=== PATIENT | female | born 1935 | race Caucasian/White ===

== ENCOUNTER 2018-12-04 12:28 | Observation (INO) | payer MEDICARE ==
[~2018-12-04] VITALS: Ht 167.6 cm; Wt 68.5 kg
[2018-12-04] MEDS ORDERED: LOSA100T57 PO (12:43)
[2018-12-04] MEDS ORDERED: LOVA20TA2 PO (12:43)
[2018-12-04] MEDS ORDERED: FURO20TA4 PO (12:43)
[2018-12-04] MEDS ORDERED: METO50TA15 PO (12:43)
[2018-12-04] MEDS ORDERED: GLIM4TAB PO (12:43)
[2018-12-04] MEDS ORDERED: LEVO50TA6 PO (12:43)
[2018-12-04] MEDS ORDERED: LOSARTAN (12:43)
[2018-12-04] MEDS ORDERED: METF-399 PO (12:43)
[2018-12-04] MEDS ORDERED: AMOX500C2 (12:43)
[2018-12-04] MEDS ORDERED: NS IV 1000 ML 1,000 ML IV SCH (12:53)
[2018-12-04] MEDS ORDERED: hydrALAZINE (APESOLINE) 20 MG/ML VIAL IV ONE (13:00)
[2018-12-04] MEDS ORDERED: ONDANSETRON 4 MG/2 ML (SDV) Z0FRAN IVP ONE (13:00)
[2018-12-04] MEDS ORDERED: ACETAMINOPHEN 325 MG TABLET PO ONE (13:00)
[2018-12-04 13:12] LABS: HEMOGLOBIN 13.8 G/DL (11.5-16.0); MEAN CORPUSCULAR HEMOGLOBIN 31 PG (25-34); WHITE BLOOD COUNT 8.4 10^3/uL (4.3-11.0)
[2018-12-04 13:13] LABS: BASOPHILS % (AUTO) 0 % (0-10); EOSINOPHILS # (AUTO) 0.1 10^3/uL (0.0-0.3); EOSINOPHILS % (AUTO) 1 % (0-10); HEMATOCRIT 43 % (35-52); LYMPHOCYTES # (AUTO) 1.8 X 10^3 (1.0-4.0); LYMPHOCYTES % (AUTO) 22 % (12-44); MEAN CORPUSCULAR HGB CONC 33 G/DL (32-36); MEAN CORPUSCULAR VOLUME 96 FL (80-99); MEAN PLATELET VOLUME 10.9 FL (7.4-10.4); MONOCYTES # (AUTO) 0.8 X 10^3 (0.0-1.0); MONOCYTES % (AUTO) 9 % (0-12); NEUTROPHILS # (AUTO) 5.6 X 10^3 (1.8-7.8); NEUTROPHILS % (AUTO) 68 % (42-75); PLATELET COUNT 203 10^3/uL (130-400); RED CELL DISTRIBUTION WIDTH 12.8 % (10.0-14.5)
--- NOTE | 2018-12-04 13:14 | ED Cardiac General ---
History of Present Illness General Chief Complaint: Cardiac/General Problems Stated Complaint: HIGH BP,DIZZINESS,NAUSEA Nursing Triage Note: Woke up this morning feeling dizzy, had a headache, and more off balance than normal. Was also nauseous and had two loose stools. Took BP at home and was 200 systolic. Also states eyes aren't focusing very well right now. History of Present Illness Date Seen by Provider: Dec 04, 2018 Time Seen by Provider: 12:45 Initial Comments The patient is an 83-year-old female with a history of hypertension on metoprolol and losartan as well as hyperlipidemia and diabetes on metformin and glimepiride. She presents with concern for not feeling well with onset upon awakening from sleep this morning. She states that earlier this morning she had 2 episodes of watery nonbloody diarrhea. She notes some associated mild nausea and lightheadedness and a gradual onset bilateral frontal headache, along with a sensation of very mildly blurry vision bilaterally. Contrary to the triage note, patient states she has some unsteadiness with ambulation and is reliant upon a cane at baseline and this is not meaningfully worse than usual today. In the setting of her other symptoms, the patient took her blood pressure and was concerned to find it elevated despite compliance with her blood pressure medication earlier this morning. She shows me a few readings above 200 systolic although she is in the 180s systolic upon initial evaluation here in the emergency department. The patient is alert and oriented 4 and in no acute distress and pleasantly and appropriately interactive and specifically denies fevers, vomiting, hematemesis, hematochezia, melena, focal weakness, numbness, tingling, neck stiffness, shortness of breath or chest pain, abdominal pain, flank pain, back pain, dysuria or hematuria, recent unusual travel, unusual foods, sick contacts with similar symptoms, recent antibiotic use. Allergies and Home Medications Allergies Coded Allergies: atorvastatin (Verified Allergy, Unknown, weak muscles, 12/04/18) Patient Home Medication List Home Medication List Reviewed: Yes Review of Systems Review of Systems Constitutional: see HPI All Other Systems Reviewed Negative Unless Noted: Yes (Negative excepted noted.) Past Uwxqkwf-Lgccgu-Laahez Hx Past Med/Social Hx: Reviewed Nursing Past Med/Soc Hx Patient Social History Recent Foreign Travel: No Contact w/Someone Who Travel: No Recent Infectious Disease Expo: No Family Medical History Reviewed Nursing Family Hx Physical Exam Vital Signs Vital Signs - First Documented 12/04/18 12:36 Temp 96.8 Pulse 62 Resp 18 B/P (MAP) 198/66 (110) Pulse Ox 99 Capillary Refill : Less Than 3 Seconds Height, Weight, BMI Height: 5'7.00" Weight: 150lbs. oz. 68.075165uq; BMI Method:Stated General Appearance: No Apparent Distress Other comments This is an elderly female appearing nontoxic and in no acute distress. Head is normocephalic and atraumatic. Neck is supple and nontender. Oropharynx is moist. Lungs are clear to auscultation at all stations. There is a normal S1 and S2 without rubs or gallops and capillary refill is appropriate, less 2 seconds globally. Abdomen is soft, nontender and nondistended. Skin is warm and dry without cyanosis or clubbing. Psychiatrically, the patient demonstrates appropriate mood and affect and is alert. Neurologically, cranial nerves II through XII are intact and there are no lateralizing deficits noted. Speech is normal. Language is normal. Coordination is normal. There is no dysmetria with dmjqeu-kz-ximr bilaterally. Strength is 5 out of 5 in all joints of bilateral upper and lower extremities. Sensation is intact to light touch in bilateral upper and lower extremities. The patient ambulates with a mildly wide-based gait with her cane and this is reportedly baseline for her. She is alert and oriented 4. Examination the bilateral lower extremities reveals no joint irritability and no calf pain or swelling bilaterally and very mild distal 1+ pitting edema below the level of the ankles bilaterally. Patient states this is slightly worse than usual but she is noted to be on a home dose of Lasix for swelling. Bilateral lower extremities are neurovascularly intact. Progress/Results/Core Measures Results/Orders Lab Results Laboratory Tests Test 12/04/18 13:00 12/04/18 13:25 Range/Units White Blood Count 8.4 4.3-11.0 10^3/uL Red Blood Count 4.45 4.35-5.85 10^6/uL Hemoglobin 13.8 11.5-16.0 G/DL Hematocrit 43 35-52 % Mean Corpuscular Volume 96 80-99 FL Mean Corpuscular Hemoglobin 31 25-34 PG Mean Corpuscular Hemoglobin Concent 33 32-36 G/DL Red Cell Distribution Width 12.8 10.0-14.5 % Platelet Count 203 130-400 10^3/uL Mean Platelet Volume 10.9 H 7.4-10.4 FL Neutrophils (%) (Auto) 68 42-75 % Lymphocytes (%) (Auto) 22 12-44 % Monocytes (%) (Auto) 9 0-12 % Eosinophils (%) (Auto) 1 0-10 % Basophils (%) (Auto) 0 0-10 % Neutrophils # (Auto) 5.6 1.8-7.8 X 10^3 Lymphocytes # (Auto) 1.8 1.0-4.0 X 10^3 Monocytes # (Auto) 0.8 0.0-1.0 X 10^3 Eosinophils # (Auto) 0.1 0.0-0.3 10^3/uL Basophils # (Auto) 0.0 0.0-0.1 10^3/uL Sodium Level 141 135-145 MMOL/L Potassium Level 4.0 3.6-5.0 MMOL/L Chloride Level 101 98-107 MMOL/L Carbon Dioxide Level 20 L 21-32 MMOL/L Anion Gap 20 H 5-14 MMOL/L Blood Urea Nitrogen 15 7-18 MG/DL Creatinine 0.74 0.60-1.30 MG/DL Estimat Glomerular Filtration Rate > 60 BUN/Creatinine Ratio 20 Glucose Level 109 H 70-105 MG/DL Calcium Level 9.5 8.5-10.1 MG/DL Corrected Calcium 8.5-10.1 MG/DL Total Bilirubin 0.3 0.1-1.0 MG/DL Aspartate Amino Transf (AST/SGOT) 18 5-34 U/L Alanine Aminotransferase (ALT/SGPT) 16 0-55 U/L Alkaline Phosphatase 61 40-136 U/L Troponin T 15 H <=10 NG/L Pro-B-Type Natriuretic Peptide 162.8 H <75.0 PG/ML Total Protein 7.5 6.4-8.2 GM/DL Albumin 4.6 H 3.2-4.5 GM/DL Urine Color YELLOW Urine Clarity CLEAR Urine pH 5.5 5-9 Urine Specific Preston <1.005 1.016-1.022 Urine Protein NEGATIVE NEGATIVE Urine Glucose (UA) NEGATIVE NEGATIVE Urine Ketones NEGATIVE NEGATIVE Urine Nitrite NEGATIVE NEGATIVE Urine Bilirubin NEGATIVE NEGATIVE Urine Urobilinogen 0.2 NORMAL MG/DL Urine Leukocyte Esterase NEGATIVE NEGATIVE Urine RBC (Auto) NEGATIVE NEGATIVE Urine RBC NONE /HPF Urine WBC NONE /HPF Urine Squamous Epithelial Cells RARE /HPF Urine Crystals NONE /LPF Urine Bacteria NONE /HPF Urine Casts NONE /LPF Urine Mucus NEGATIVE /LPF Urine Culture Indicated NO My Orders Orders - DELIA MERINO MD Cbc With Automated Diff (12/04/18 12:53) Comprehensive Metabolic Panel (12/04/18 12:53) Troponin T (12/04/18 12:53) Ekg Tracing (12/04/18 12:53) Probnp Fs (12/04/18 12:53) Chest 1 View Ap/Pa Only (12/04/18 12:53) Ua Culture If Indicated (12/04/18 12:53) Hydralazine Injection (Apresoline Inject (12/04/18 13:00) Ed Iv/Invasive Line Start (12/04/18 12:53) Ns Iv 1000 Ml (Sodium Chloride 0.9%) (12/04/18 12:53) Acetaminophen Tablet/Caplet (Tylenol T (12/04/18 13:00) Ondansetron Injection (Zofran Injectio (12/04/18 13:00) Ct Head Wo (12/04/18 12:53) Medications Given in ED Current Medications Medications Dose Ordered Sig/Lindsay Route Start Time Stop Time Status Last Admin Dose Admin Acetaminophen 975 mg ONCE ONCE PO 12/04/18 13:00 12/04/18 13:01 DC 12/04/18 13:39 975 MG Hydralazine HCl 10 mg ONCE ONCE IV 12/04/18 13:00 12/04/18 13:01 DC 12/04/18 13:38 10 MG Ondansetron HCl 4 mg ONCE ONCE IVP 12/04/18 13:00 12/04/18 13:01 DC 12/04/18 13:38 4 MG Vital Signs/I&O 12/04/18 12:36 Temp 96.8 Pulse 62 Resp 18 B/P (MAP) 198/66 (110) Pulse Ox 99 Blood Pressure Mean: 110 Progress Progress Note : Time: 13:17 Progress Note Clinical examination reassuring. Elderly female with hypertension and lxi-jxqqvxi-ijsulrzap diabetes who presents with lightheadedness and mild headache and mild nausea in the setting of 2 episodes of loose stool this morning. No red flags for bacterial diarrhea. Neurologic examination is nonfocal. Patient is incidentally noting an elevated blood pressure this morning. Will check labs and EKG and chest x-ray and will give medication for symptomatic management as per nursing flow sheet as well as a dose of antihypertensive and some fluids and we'll check a head CT and will then reevaluate. Patient is likely low risk for her presyncope by [place] criteria. If workup is reassuring and the patient feels better, likely home to follow up very closely with primary care in the next 1-2 days. The patient and her family understand and agree with the plan of care. As patient is slightly bradycardic in the setting of metoprolol usage, will try some hydralazine for blood pressure management. Update 1410: Patient is resting comfortably and vital signs are improved upon reassessment with presenting hypertension essentially resolved. She states her symptoms are nearly resolved as well and she feels much better. Workup is as above, generally without significant evidence of acute process aside from a very minimally elevated troponin T value and very slight elevation in BNP without hypoxia or findings of vascular congestion on chest x-ray. Unfortunately, while I feel the patient's symptoms are most likely related to a mild enteritis with diarrheal episodes earlier this morning, minimally elevated troponin in the setting of other presenting symptoms and elevated blood pressure does raise concern for possible demand ischemia in the setting of uncontrolled hypertension. The patient will therefore require admission for observation on telemetry, troponin trending and further care as indicated. Patient is graciously accepted in transfer by Dr. Hanson. Patient and family are counseled on the findings of workup and the plan of care and they understand and agree and all questions are answered. We will transfer to [facility] via EMS. Initial ECG Impression Date: Dec 04, 2018 Comment Sinus rhythm, no acute ST elevation or depression, rate 57, MN 175, QRS 92, QTc 380, EP interpretation. Diagnostic Imaging Diagonstic Imaging: Xray, CT Comments CHEST 1 VIEW AP/PA ONLY INDICATION: Elevated blood pressure and nausea. TIME OF EXAM: 1:09 PM No prior studies are available for comparison. FINDINGS: The heart size is normal. The pulmonary vascularity is unremarkable. The lungs are clear. No infiltrate, effusion or pneumothorax is detected. IMPRESSION: No acute cardiopulmonary process is detected. CT HEAD WO PROCEDURE: CT head without contrast. TECHNIQUE: Multiple contiguous axial images were obtained through the brain without the use of intravenous contrast. Auto Exposure Controls were utilized during the CT exam to meet ALARA standards for radiation dose reduction. INDICATION: Dizziness, headache, and loss of balance. Nausea and high blood pressure. COMPARISON: None. FINDINGS: BRAIN: No parenchymal hemorrhage, midline shift or mass effect. Berg-white matter differentiation is intact. No acute infarct. No white matter lesions. Ventricles, sulci and basilar cisterns are normal. EXTRA-AXIAL SPACES: No subdural or epidural collections. ORBITS AND PARANASAL SINUSES: Visualized orbits and globes are intact. Visualized paranasal sinuses and mastoid air cells are clear. CALVARIUM AND SOFT TISSUES: The calvarium is intact. No fractures or suspicious bony lesions. The extracranial soft tissues are unremarkable. IMPRESSION: No acute intracranial pathology. Departure Impression Primary Impression: Acute diarrhea Additional Impressions: Dizziness and giddiness Hypertensive urgency Elevated troponin level Disposition: ADMITTED INPATIENT Condition: Improved Admissions Decision to Admit Reason: Admit from ER (General) Decision to Admit/Date: Dec 04, 2018 Time/Decision to Admit Time: 14:00 Departure-Patient Inst. Referrals: LUCIEN LYONS MD (PCP/Family) Primary Care Physician DELIA MERINO MD Dec 04, 2018 13:14
--- NOTE | 2018-12-04 13:39 | Diagnostic Imaging Report ---
INDICATION: Elevated blood pressure and nausea. TIME OF EXAM: 1:09 PM No prior studies are available for comparison. FINDINGS: The heart size is normal. The pulmonary vascularity is unremarkable. The lungs are clear. No infiltrate, effusion or pneumothorax is detected. IMPRESSION: No acute cardiopulmonary process is detected. Dictated by: Dictated on workstation # [id number]
--- NOTE | 2018-12-04 13:42 | Diagnostic Imaging Report ---
PROCEDURE: CT head without contrast. TECHNIQUE: Multiple contiguous axial images were obtained through the brain without the use of intravenous contrast. Auto Exposure Controls were utilized during the CT exam to meet ALARA standards for radiation dose reduction. INDICATION: Dizziness, headache, and loss of balance. Nausea and high blood pressure. COMPARISON: None. FINDINGS: BRAIN: No parenchymal hemorrhage, midline shift or mass effect. Berg-white matter differentiation is intact. No acute infarct. No white matter lesions. Ventricles, sulci and basilar cisterns are normal. EXTRA-AXIAL SPACES: No subdural or epidural collections. ORBITS AND PARANASAL SINUSES: Visualized orbits and globes are intact. Visualized paranasal sinuses and mastoid air cells are clear. CALVARIUM AND SOFT TISSUES: The calvarium is intact. No fractures or suspicious bony lesions. The extracranial soft tissues are unremarkable. IMPRESSION: No acute intracranial pathology. Dictated by: Dictated on workstation # [id number]
[2018-12-04 13:43] LABS: ALANINE AMINOTRANSFERASE 16 U/L (0-55); ALBUMIN 4.6 GM/DL (3.2-4.5); ALKALINE PHOSPHATASE 61 U/L (40-136); BILIRUBIN,TOTAL 0.3 MG/DL (0.1-1.0); BUN/CREATININE RATIO 20; CALCIUM 9.5 MG/DL (8.5-10.1); CARBON DIOXIDE 20 MMOL/L (21-32); CHLORIDE 101 MMOL/L (98-107); CREATININE SERUM 0.74 MG/DL (0.60-1.30); GFR ESTIMATED > 60; GLUCOSE 109 MG/DL (70-105); SODIUM 141 MMOL/L (135-145); TOTAL PROTEIN 7.5 GM/DL (6.4-8.2)
[2018-12-04 13:59] LABS: BILIRUBIN,URINE NEGATIVE (NEGATIVE); CLARITY,URINE CLEAR; COLOR,URINE YELLOW; GLUCOSE, URINE (UA) NEGATIVE (NEGATIVE); KETONES,URINE NEGATIVE (NEGATIVE); LEUKOCYTE ESTERASE ,URINE NEGATIVE (NEGATIVE); NITRITE,URINE NEGATIVE (NEGATIVE); PH,URINE 5.5 (5-9); PROTEIN,URINE NEGATIVE (NEGATIVE); SQUAMOUS EPITHELIAL CELL,UR RARE /HPF; UROBILINOGEN,URINE 0.2 MG/DL (NORMAL)
[2018-12-04] MEDS ORDERED: ASPIRIN 81 MG CHEW (CHILDREN'S ASA) PO STA (14:26)
--- NOTE | 2018-12-04 16:55 | NUR ---
EMY BROWN admitted to room 423-1, with an admitting diagnosis of HIGH BP, on 12/04/18 from [facility] via AMBULANCE, accompanied by STAFF .EMY BROWN introduced to surroundings, call light, bed controls, phone, TV, temperature control, lights, meal times, smoking policy, visitor policy, side rail policy, bathrooms and showers. Patient Rights given to patient in the handbook.EMY BROWN verbalizes understanding that [facility] is not responsible for the loss or damage to any personal effects or valuables that are kept in the patients posession during their hospitalization. The following Patient Care Plans were discussed with the PT: Discharge Planning, PAIN CONTROL,IV THERAPY, and TESTS AND PROCEDURES. EMY BROWN verbalizes understanding of Interdisciplinary Patient Education. Patient and/or family were informed about the Rapid Response Team and its purpose.
[2018-12-04 17:56] VITALS: BP 146/67
[2018-12-04] MEDS ORDERED: NS IV 1000 ML 0 ML ONE (18:13)
[2018-12-04] MEDS: NS IV 1000 ML 1,000 ML IV SCH ×2 (18:24→20:51)
[2018-12-04 20:00] VITALS: BP 153/65
[2018-12-05] VITALS: BP 137/61
[2018-12-05 04:00] VITALS: BP 134/60
[2018-12-05 04:55] LABS: BASOPHILS % (AUTO) 0 % (0-10); EOSINOPHILS # (AUTO) 0.1 10^3/uL (0.0-0.3); EOSINOPHILS % (AUTO) 2 % (0-10); HEMATOCRIT 34 % (35-52); HEMOGLOBIN 11.3 G/DL (11.5-16.0); LYMPHOCYTES # (AUTO) 1.9 X 10^3 (1.0-4.0); LYMPHOCYTES % (AUTO) 32 % (12-44); MEAN CORPUSCULAR HEMOGLOBIN 31 PG (25-34); MEAN CORPUSCULAR HGB CONC 34 G/DL (32-36); MEAN CORPUSCULAR VOLUME 93 FL (80-99); MEAN PLATELET VOLUME 11.1 FL (7.4-10.4); MONOCYTES # (AUTO) 0.6 X 10^3 (0.0-1.0); MONOCYTES % (AUTO) 11 % (0-12); NEUTROPHILS # (AUTO) 3.2 X 10^3 (1.8-7.8); NEUTROPHILS % (AUTO) 55 % (42-75); PLATELET COUNT 163 10^3/uL (130-400); RED CELL DISTRIBUTION WIDTH 12.7 % (10.0-14.5); WHITE BLOOD COUNT 5.8 10^3/uL (4.3-11.0)
[2018-12-05 05:13] LABS: ALANINE AMINOTRANSFERASE 14 U/L (0-55); ALBUMIN 3.1 GM/DL (3.2-4.5); ALKALINE PHOSPHATASE 45 U/L (40-136); BILIRUBIN,TOTAL 0.3 MG/DL (0.1-1.0); BUN/CREATININE RATIO 16; CALCIUM 8.3 MG/DL (8.5-10.1); CARBON DIOXIDE 21 MMOL/L (21-32); CHLORIDE 114 MMOL/L (98-107); CREATININE SERUM 0.83 MG/DL (0.60-1.30); GFR ESTIMATED > 60; GLUCOSE 159 MG/DL (70-105); POTASSIUM 3.5 MMOL/L (3.6-5.0); SODIUM 143 MMOL/L (135-145); TOTAL PROTEIN 5.3 GM/DL (6.4-8.2)
[2018-12-05] MEDS: NS IV 1000 ML 1,000 ML IV SCH ×2 (08:28→15:02)
--- NOTE | 2018-12-05 11:23 | Consultation-Cardiology ---
HPI-Cardiology Cardiology Consultation: Date of Consultation 12/05/18 Time Seen by a Provider: 11:40 Date of Admission 12-04-18 Attending Physician Jordi Hanson MD Admitting Physician Noel Mckenna MD Consulting Physician Kenyatta Scott MD HPI: Chief Complaint: Chest pain Ms. Heredia is an 83 year old female transferred to room 423 from the [facility] ED. She reports yesterday morning she woke up and was "not feeling right". She reports she had several episodes of lose stools at home. She reports a feeling of chest pressure which radiated across her chest and upper abdomen. She reports a feeling or pressure/heaviness in her head. She reports feeling dizzy and as though she might pass out. She reports feeling nauseated. She denies any diaphoresis. She states she took her BP and noted it to be elevated in the 200's systolic range. She reports she called her daughter. She states they continuously checked her BP and noted it to continue to be elevated. She denies any SOB. No c/o palpitations. They then went to the ED in [facility]. She reports the chest/abdomen discomfort resolved with medication received in the ED. She states the pressure in her head has improved, but is not completely gone. She denies any vision changes or weakness. She denies any fever or chills. She uses a cane to ambulate. Review of Systems-Cardiology Review of Systems Constitutional: No chills, No fever; lightheadedness; No malaise Eyes: No vision change Ears/Nose/Throat: No epistaxis, No recent hearing loss Respiratory: As described under HPI Cardiovascular: As described under HPI Gastrointestinal: No constipation; diarrhea; No nausea, No vomiting Genitourinary: No dysuria, No hematuria Musculoskeletal: joint pain (chronic) Skin: No rash, No ulcerations Psychiatric/Neurological: No anxiety, No depression, No seizure, No focal weakness, No syncope Hematologic: No bleeding abnormalities All Other Systems Reviewed Negative Unless Noted: Yes (Negative excepted noted.) VPK-Bisdyt-Ondztz Hx Patient Social History Alcohol Use: Occasionally Uses Recreational Drug Use: No Smoking Status: Former Smoker 2nd Hand Smoke Exposure: No Recent Foreign Travel: No Recent Infectious Disease Expo: No Physical Abuse Screen: No Sexual Abuse: No Immunizations Up To Date Date of Pneumonia Vaccine: Apr 05, 2017 Past Medical History PMH As described under Assessment. Family Medical History Family Medical History: She reports he mother had a PE in her 70's. No known family h/o CAD, SCD. Family History: Diabetes mellitus 19 MOTHER Allergies and Home Medications Allergies Coded Allergies: atorvastatin (Verified Allergy, Unknown, weak muscles, 12/04/18) Home Medications Amlodipine Besylate 10 Mg Tablet, 10 MG PO DAILY Prescribed by: SHANNON TERRAZAS on 12/05/18 1076 Furosemide 20 Mg Tablet, 20 MG PO DAILY, (Reported) Glimepiride 4 Mg Tablet, 4 MG PO DAILY, (Reported) Levothyroxine Sodium 50 Mcg Tablet, 50 MCG PO DAILY, (Reported) Losartan Potassium 100 Mg Tablet, 100 MG PO DAILY, (Reported) Lovastatin 20 Mg Tablet, 20 MG PO 1800, (Reported) Metformin HCl 1,000 Mg Tablet, 1,000 MG PO BID, (Reported) Metoprolol Tartrate 50 Mg Tablet, 50 MG PO BID, (Reported) Patient Home Medication List Home Medication List Reviewed: Yes Physical Exam-Cardiology Physical Exam Vital Signs/I&O Capillary Refill : Less Than 3 Seconds Constitutional: AAO x 3, well-developed, well-nourished HEENT: PERRL, hearing is well preserved, oral hygience is good Neck: No carotid bruit; carotid pulses are 2 + bilaterally Respiratory: No accessory muscle use, No respiratory distress; chest expansion is symmetric, chest is bilaterally symmetric, lungs clear to auscultation Cardiovascular: regular rate-rhythm; No JVD; S1 and S2 Gastrointestinal: No tender; soft, round, audible bowel sounds Rectal: deferred Extremities: no lower extremity edema bilateral Neurologic/Psychiatric: grossly intact Skin: No rash, No ulcerations Data Review Labs Radiology NAME: EMY HEREDIA [facility] REC#: [id number] PT STATUS: ADM Stephania : 1935 PHYSICIAN: DELIA MERINO MD ADMIT DATE: 12/04/18 Signed Date of Exam: 12/04/18 CT HEAD WO PROCEDURE: CT head without contrast. TECHNIQUE: Multiple contiguous axial images were obtained through the brain without the use of intravenous contrast. Auto Exposure Controls were utilized during the CT exam to meet ALARA standards for radiation dose reduction. INDICATION: Dizziness, headache, and loss of balance. Nausea and high blood pressure. COMPARISON: None. FINDINGS: BRAIN: No parenchymal hemorrhage, midline shift or mass effect. Berg-white matter differentiation is intact. No acute infarct. No white matter lesions. Ventricles, sulci and basilar cisterns are normal. EXTRA-AXIAL SPACES: No subdural or epidural collections. ORBITS AND PARANASAL SINUSES: Visualized orbits and globes are intact. Visualized paranasal sinuses and mastoid air cells are clear. CALVARIUM AND SOFT TISSUES: The calvarium is intact. No fractures or suspicious bony lesions. The extracranial soft tissues are unremarkable. IMPRESSION: No acute intracranial pathology. Dictated by: Dictated on workstation # [id number] Dict: 12/04/18 1338 Trans: 12/04/18 165 Interpreted by: LENORA LARA DO Electronically signed by: LENORA LARA DO 12/04/18 1655 NAME: EMY HEREDIA [facility] REC#: [id number] PT STATUS: REG ER : 1935 PHYSICIAN: DELIA MERINO MD ADMIT DATE: 12/04/18/ER FS Signed Date of Exam: 12/04/18 CHEST 1 VIEW AP/PA ONLY INDICATION: Elevated blood pressure and nausea. TIME OF EXAM: 1:09 PM No prior studies are available for comparison. FINDINGS: The heart size is normal. The pulmonary vascularity is unremarkable. The lungs are clear. No infiltrate, effusion or pneumothorax is detected. IMPRESSION: No acute cardiopulmonary process is detected. Dictated by: Dictated on workstation # [id number] Dict: 12/04/18 1336 Trans: 12/04/18 1449 Interpreted by: BETSY BARRAZA MD Electronically signed by: BETSY BARRAZA MD 12/04/18 1449 ECG Impression ECG Initial ECG Rhythm: Normal Sinus A/P-Cardiology Assessment/Admission Diagnosis Episode of uncontrolled hypertension Chest discomfort of undetermined etiology Minimally elevated troponin likely secondary to severely elevated BP Episode of diarrhea of undetermined etiology HTN HLD - statin followed by PCP Hypokalemia Chronic joint/muscle discomfort which she reports is d/t previous use of Lipitor Reports h/o MVP (diagnosed in the ) Hypothyroidism DM 2 H/O right wrist/ankle fracture Discussion and Recomendations Chest discomfort of undetermined etiology Uncontrolled hypertension which is currently controlled Minimally elevated troponin likely secondary to episode on severely elevated blood pressure Echocardiogram to eval structure and function Advise continuation of home antihypertensive regimen We will add Norvasc for better control of blood pressure If she continues to feel well likely could discharge home later today with out pt f/u won work up d/t coronary risk factors as noted above We would like to thank medical services for this consult Further recs will be based on her hospital course Clinical Quality Measures DVT/VTE Risk/Contraindication: Risk Factor Score Per Nursin RFS Level Per Nursing on Admit: 4+=Very High Physician Assessment Physician Assessment Please also see my consultation note of this same date JOEY WHITLOCK Dec 05, 2018 11:23 KENYATTA SCOTT MD FACP FACC CCDS Dec 07, 2018 11:55
[2018-12-05] MEDS ORDERED: amLODIPine 5 MG (NORVASC) TAB PO NR (12:30)
[2018-12-05] MEDS ORDERED: CATHETER FLUSH 10 ML SYR IV PRN (12:45)
[2018-12-05] MEDS ORDERED: KCL 10 MEQ TAB (MICRO K) PO NR (13:15)
[2018-12-05] MEDS ORDERED: amLODIPine 10 MG (NORVASC) TAB PO NR (13:15)
--- NOTE | 2018-12-05 13:18 | NUR ---
PATIENT HAD A LIST OF MEDICATIONS, I COMPARED IT WITH THE EXT MED HX. SHE STATES SHE DOES NOT TAKE ANYTHING OTC.
--- NOTE | 2018-12-05 13:19 | Consultation-Cardiology ---
HPI-Cardiology Cardiology Consultation: Date of Consultation 12/05/18 Time Seen by a Provider: 12:50 Date of Admission Attending Physician Jordi Hanson MD Admitting Physician Noel Mckenna MD Consulting Physician POOJA DALEY MD, FACP, FACC HPI: Chief Complaint: Reason for consultation: uncontrolled hypertension, minimal troponin elevation HPI Ms. Heredia is an 83 year old female transferred to room 423 from the [facility] ED. She reports yesterday morning she woke up and was "not feeling right". She reports she had several episodes of lose stools at home. She reports a feeling of chest pressure which radiated across her chest and upper abdomen. She reports a feeling or pressure/heaviness in her head. She reports feeling dizzy and as though she might pass out. She reports feeling nauseated. She denies any diaphoresis. She states she took her BP and noted it to be elevated in the 200's systolic range. She reports she called her daughter. She states they continuously checked her BP and noted it to continue to be elevated. She denies any SOB. No c/o palpitations. They then went to the ED in [facility]. She reports the chest/abdomen discomfort resolved with medication received in the ED. She states the pressure in her head has improved, but is not completely gone. She denies any vision changes or weakness. She denies any fever or chills. She uses a cane to ambulate. Review of Systems-Cardiology Review of Systems Constitutional: No chills, No fever; lightheadedness; No malaise Eyes: No vision change Ears/Nose/Throat: No epistaxis, No recent hearing loss Respiratory: As described under HPI Cardiovascular: As described under HPI Gastrointestinal: No constipation; diarrhea; No nausea, No vomiting Genitourinary: No dysuria, No hematuria Musculoskeletal: joint pain (chronic) Skin: No rash, No ulcerations Psychiatric/Neurological: No anxiety, No depression, No seizure, No focal weakness, No syncope Hematologic: No bleeding abnormalities All Other Systems Reviewed Negative Unless Noted: Yes (Negative excepted noted.) OIC-Wgkzmh-Bgmaao Hx Patient Social History Alcohol Use: Occasionally Uses Recreational Drug Use: No Smoking Status: Former Smoker 2nd Hand Smoke Exposure: No Recent Foreign Travel: No Recent Infectious Disease Expo: No Physical Abuse Screen: No Sexual Abuse: No Immunizations Up To Date Date of Pneumonia Vaccine: Apr 05, 2017 Past Medical History PMH As described under Assessment. Family Medical History Family Medical History: She reports he mother had a PE in her 70's. No known family h/o CAD, SCD. Family History: Diabetes mellitus 19 MOTHER Allergies and Home Medications Allergies Coded Allergies: atorvastatin (Verified Allergy, Unknown, weak muscles, 12/04/18) Home Medications Furosemide 20 Mg Tablet, 1 TAB PO DAILY, (Reported) Glimepiride 4 Mg Tablet, 1 TAB PO DAILY, (Reported) Levothyroxine Sodium 50 Mcg Tablet, 1 TAB PO DAILY, (Reported) Lovastatin 20 Mg Tablet, 1 TAB PO DAILY, (Reported) WITH SUPPER Metformin HCl 1,000 Mg Tablet, 1 TAB PO BID, (Reported) Metoprolol Tartrate 50 Mg Tablet, 1 TAB PO BID, (Reported) Patient Home Medication List Home Medication List Reviewed: Yes Physical Exam-Cardiology Physical Exam Vital Signs/I&O 12/05/18 12/05/18 04:00 07:00 Temp 98.7 Pulse 62 59 Resp 18 B/P (MAP) 134/60 (84) Pulse Ox 94 O2 Delivery Room Air 12/05/18 00:00 Intake Total 540 ml Output Total 0 ml Balance 540 ml Capillary Refill : Less Than 3 Seconds Constitutional: AAO x 3, well-developed, well-nourished HEENT: PERRL, hearing is well preserved, oral hygience is good Neck: No carotid bruit; carotid pulses are 2 + bilaterally Respiratory: No accessory muscle use, No respiratory distress; chest expansion is symmetric, chest is bilaterally symmetric, lungs clear to auscultation Cardiovascular: regular rate-rhythm; No JVD; S1 and S2 Gastrointestinal: No tender; soft, round, audible bowel sounds Rectal: deferred Extremities: no lower extremity edema bilateral Neurologic/Psychiatric: grossly intact Skin: No rash, No ulcerations Data Review Labs Laboratory Tests 12/04/18 13:25: Urine Color YELLOW, Urine Clarity CLEAR, Urine pH 5.5, Urine Specific [place] <1.005, Urine Protein NEGATIVE, Urine Glucose (UA) NEGATIVE, Urine Ketones NEGATIVE, Urine Nitrite NEGATIVE, Urine Bilirubin NEGATIVE, Urine Urobilinogen 0.2, Urine Leukocyte Esterase NEGATIVE, Urine RBC (Auto) NEGATIVE, Urine RBC NONE, Urine WBC NONE, Urine Squamous Epithelial Cells RARE, Urine Crystals NONE, Urine Bacteria NONE, Urine Casts NONE, Urine Mucus NEGATIVE, Urine Culture Indicated NO 12/04/18 18:05: Troponin I 0.095H 12/04/18 23:33: Troponin I 0.059H 12/05/18 04:19: White Blood Count 5.8, Red Blood Count 3.62L, Hemoglobin 11.3L, Hematocrit 34L, Mean Corpuscular Volume 93, Mean Corpuscular Hemoglobin 31, Mean Corpuscular Hemoglobin Concent 34, Red Cell Distribution Width 12.7, Platelet Count 163, Mean Platelet Volume 11.1H, Neutrophils (%) (Auto) 55, Lymphocytes (%) (Auto) 32, Monocytes (%) (Auto) 11, Eosinophils (%) (Auto) 2, Basophils (%) (Auto) 0, Neutrophils # (Auto) 3.2, Lymphocytes # (Auto) 1.9, Monocytes # (Auto) 0.6, Eosinophils # (Auto) 0.1, Basophils # (Auto) 0.0, Sodium Level 143, Potassium Level 3.5L, Chloride Level 114#H, Carbon Dioxide Level 21, Anion Gap 8, Blood Urea Nitrogen 13, Creatinine 0.83, Estimat Glomerular Filtration Rate > 60, BUN/Creatinine Ratio 16, Glucose Level 159H, Calcium Level 8.3L, Corrected Calcium 9.0, Total Bilirubin 0.3, Aspartate Amino Transf (AST/SGOT) 14, Alanine Aminotransferase (ALT/SGPT) 14, Alkaline Phosphatase 45, Total Protein 5.3L, Albumin 3.1L Laboratory Tests 12/04/18 13:00 12/05/18 04:19 ECG Impression ECG EKG : Comment Serial ECGs (on 12/04/18 and 12/05/18) do not show any evidence of ischemia. Some axis shift is noted, likely positional A/P-Cardiology Assessment/Admission Diagnosis Severe, uncontrolled hypertension associated with generalized discomfort and malaise Minimally elevated troponin, likely minimal type 2 MT due to severe, uncontrolled hypertension Episode of diarrhea of undetermined etiology HTN HLD - statin followed by PCP Hypokalemia Chronic joint/muscle discomfort which she reports is d/t previous use of Lipitor Reports h/o MVP (diagnosed in the s) Hypothyroidism DM 2 H/O right wrist/ankle fracture Discussion and Recomendations * Add amlodipine to home regimen of losartan and metoprolol for bp * MPI as outpatient, given risk factors for CAD * Add ASA to regimen * Replenish K * Echo * W/u for and treatment of diarrhea, electrolyte abnormalities, diabetes and other medical issues is with the Med/Hospitalist Services * We would like to thank Medical Services for this consult * Outpatient cardiac f/u is advised * I spoke with her in detail and answered her questions Clinical Quality Measures DVT/VTE Risk/Contraindication: Risk Factor Score Per Nursin RFS Level Per Nursing on Admit: 4+=Very High POOJA DALEY MD FACP FAC CCDS Dec 05, 2018 13:19
--- NOTE | 2018-12-05 13:52 | History & Physical-Hospitalist ---
History of Present Illness HPI/Chief Complaint The patient is an 83-year-old white female who was sent here from via [facility]. She presented with complaints of dizziness headache and nausea. She took her blood pressure at home and found it to be greater than 200 systolic she reports that this had happened one time previously. She has been hypertensi ve about 4 years and takes medicine faithfully. She was transferred here and is now found to have controlled blood pressure and the nausea and headache have gone. Date Seen 12/05/18 Time Seen by a Provider: 13:49 Attending Physician Jordi Jeffrey MD PCP Noel Mckenna MD Referring Physician Date of Admission Dec 04, 2018 at 15:02 Home Medications & Allergies Home Medications Reviewed patient Home Medication Reconciliation performed by pharmacy medication reconciliations broadcast maintenance technician and/or nursing. Patients Allergies have been reviewed. Allergies Allergies Coded Allergies atorvastatin (Verified Allergy, Unknown, weak muscles, 12/04/18) Past Obedyid-Zyqddn-Gxsdvu Hx Past Med/Social Hx: Reviewed Nursing Past Med/Soc Hx Patient Social History Alcohol Use: Occasionally Uses Alcohol Beverage of Choice: Wine Recreational Drug Use: No Smoking Status: Former Smoker Former Smoker, Quit: Dec 04, 1988 2nd Hand Smoke Exposure: No Physical Abuse Screen: No Sexual Abuse: No Recent Foreign Travel: No Contact w/other who traveled: Yes (Neighbor: Kamini 48 hours ago) Recent Hopitalizations: No Recent Infectious Disease Expo: No Immunizations Up To Date Date of Pneumonia Vaccine: Apr 05, 2017 Seasonal Allergies Seasonal Allergies: No Past Medical History Surgeries: Appendectomy, Orthopedic Cardiac: High Cholesterol, Hypertension Endocrine: Hypothyroidsim History of Blood Disorders: No Adverse Reaction to Blood Robert: No Family History Reviewed Nursing Family Hx Diabetes mellitus 19 MOTHER Review of Systems Constitutional: see HPI EENTM: no symptoms reported (symptoms from history of present illness have resolved.) Respiratory: no symptoms reported Cardiovascular: no symptoms reported Gastrointestinal: no symptoms reported Genitourinary: no symptoms reported Musculoskeletal: no symptoms reported Skin: no symptoms reported Psychiatric/Neurological: No Symptoms Reported Physical Exam Physical Exam Vital Signs Vital Signs - First Documented 12/04/18 12/04/18 12:36 17:56 Temp 96.8 Pulse 62 Resp 18 B/P (MAP) 198/66 (110) Pulse Ox 99 O2 Delivery Room Air Capillary Refill : Less Than 3 Seconds Height, Weight, BMI Height: 5'6.00" Weight: 151lbs. 0.0oz. [id number]; 24.4 BMI Method:Stated General Appearance: No Apparent Distress, WD/WN Eyes: Bilateral Eye Normal Inspection HEENT: Normal ENT Inspection Neck: Full Range of Motion, Normal Inspection, Non Tender Respiratory: Chest Non Tender, Lungs Clear, Normal Breath Sounds, No Accessory Muscle Use, No Respiratory Distress Cardiovascular: Regular Rate, Rhythm, No Edema, No Gallop, No JVD, No Murmur, Normal Peripheral Pulses Gastrointestinal: Normal Bowel Sounds, No Organomegaly, No Pulsatile Mass, Non Tender, Soft Back: Normal Inspection, No CVA Tenderness, No Vertebral Tenderness Neurologic/Psychiatric: Alert, Oriented x3, No Motor/Sensory Deficits, Normal Mood/Affect Skin: Normal Color, Warm/Dry Lymphatic: No Adenopathy Comments Blood pressure on arrival here was 198/66. She had received medications at the emergency room at [place]. Her most recent is now 134/60. Results Results/Procedures Labs Laboratory Tests 12/04/18 13:00 12/05/18 04:19 Patient resulted labs reviewed. Assessment/Plan Admission Diagnosis Hypertension. 2.hypertensive urgency. 3.diabetes mellitus type II non-insulin- requiring Admission Status: Observation Clinical Quality Measures DVT/VTE Risk/Contraindication: Risk Factor Score Per Nursin RFS Level Per Nursing on Admit: 4+=Very High JORDI JEFFREY MD Dec 05, 2018 13:52
[2018-12-05] MEDS ORDERED: AMLO10TA4 PO (14:45)
[2018-12-05 15:40] VITALS: BP 134/60
--- NOTE | 2018-12-05 15:40 | NUR ---
EMY BROWN demonstrates understanding of discharge instructions and accurately returns instructions upon questioning. Copy of Post-Discharge Instructions given to PT. EMY BROWN is able to manage continuing needs after discharge. Patients belongings returned to PT. Patient discharged from [facility] on 12/05/18 at 1540 . EMY BROWN left floor via W/C, accompanied by STAFF AND FAMILY PER AUTO.
[2018-12-05] MEDS ORDERED: meTOprolol TARTRATE 50 MG (LOPRESSOR) TAB PO SCH (21:00)
[2018-12-06] MEDS ORDERED: ASPIRIN 325 MG (5 GR) TABLET PO SCH (09:00)
[2018-12-06] MEDS ORDERED: amLODIPine 5 MG (NORVASC) TAB PO SCH (09:00)
[2018-12-06] MEDS ORDERED: LOSARTAN 100 MG (COZAAR) TABLET PO SCH (09:00)
[2018-12-06] MEDS ORDERED: ASPIRIN 81 MG CHEW (CHILDREN'S ASA) PO SCH (09:00)
[2018-12-06] MEDS ORDERED: amLODIPine 10 MG (NORVASC) TAB PO SCH (09:00)
== END 2018-12-05 14:43 | disposition home or self-care (01) ==
LOC: ER FS 12:31 → UNDOADMOB 15:02 → 4TH 15:02 → UNDODISOB 12-05 14:40
PROVIDERS: ADMIT Internal Medicine; ATTEND Internal Medicine
DX: I16.0 Hypertensive urgency (principal); I10 Essential (primary) hypertension; R19.7 Diarrhea, unspecified; E87.6 Hypokalemia; R79.89 Other specified abnormal findings of blood chemistry; R07.89 Other chest pain; E78.5 Hyperlipidemia, unspecified; E11.9 Type 2 diabetes mellitus without complications; E03.9 Hypothyroidism, unspecified; I08.2 Rheumatic disorders of both aortic and tricuspid valves; R42 Dizziness and giddiness; Z79.84 Long term (current) use of oral hypoglycemic drugs; Z79.899 Other long term (current) drug therapy; Z87.891 Personal history of nicotine dependence
CPT/HCPCS: 36415; 70450; 71045; 80053; 81000; 83880; 84484; 85025; 93005; 93306; 94760; 96374; 96375; G0378